=== PATIENT | female | born 1995 | race Caucasian/White ===

== ENCOUNTER 2020-07-11 16:06 | Inpatient (IN) | payer MEDICAID ==
[~2020-07-11 16:06] MED LIST: Bupivacaine 0.25% 10 ML SDV ONE
[2020-07-11] MEDS ORDERED: Ondansetron 4 MG/2 ML SDV IVPUSH PRN (16:18)
[2020-07-11] MEDS ORDERED: Nalbuphine 10 MG/1 ML Vial IVPUSH PRN (16:18)
[2020-07-11] MEDS ORDERED: Sodium Chloride 0.9% 10 ML Syringe FLUSH PRN (16:18)
[2020-07-11] MEDS ORDERED: Lidocaine 1% 50 ML MDV INJECT ONE (16:18)
[2020-07-11] MEDS ORDERED: Oxytocin/Lactated Ringers 10 UNIT/1,000 ML BAG IV SCH ×2 (16:30)
[2020-07-11] MEDS: Lactated Ringers 1,000 ML IV SCH ×3 (18:34→21:40)
[2020-07-11] MEDS ORDERED: fentaNYL 100 MCG/2 ML SDV EPIDUR PRN (20:24)
[2020-07-11] MEDS ORDERED: Bupivacaine/fentaNYL/NS 100 ML Bag EPIDUR PRN (20:24)
[2020-07-11] MEDS ORDERED: diphenhydrAMINE 50 MG/ML SDV IVPUSH PRN (20:24)
[2020-07-11] MEDS ORDERED: ePHEDrine 50 MG/ML SDV IVPUSH PRN (20:24)
--- NOTE | 2020-07-11 20:26 | PCM.PREANE ---
Preanesthetic Assessment - Procedure Proposed Procedure: epidural - Anesthesia/Transfusion/Family Hx Anesthesia History: Prior Anesthesia Without Reaction Family History of Anesthesia Reaction: No Transfusion History: No Prior Transfusion(s) - Review of Systems General: Fatigue Pulmonary: No Symptoms Cardiovascular: No Symptoms Gastrointestinal: Abdominal Pain (labor) Neurological: No Symptoms Other: Reports: None - Physical Assessment Vital Signs: Last Vital Signs Temp 36.8 C 07/11/20 16:18 Pulse 120 H 07/11/20 16:18 Resp 15 07/11/20 16:18 BP 133/83 07/11/20 16:18 Pulse Ox Height: 1.65 m Weight: 99.79 kg ASA Class: 5E Emergency Airway Class: Mallampati = 1 Dentition: Reports: Normal Dentition Thyro-Mental Finger Breadths: 3 Mouth Opening Finger Breadths: 3 ROM/Head Extension: Full Lungs: Clear to Auscultation, Normal Respiratory Effort Cardiovascular: Regular Rate, Regular Rhythm - Lab Values: Laboratory Last Values WBC 10.07 K/mm3 (3.98-10.04) H 07/11/20 16:35 RBC 4.15 M/mm3 (3.98-5.22) 07/11/20 16:35 Hgb 12.1 gm/dl (11.2-15.7) 07/11/20 16:35 Hct 37.4 % (34.1-44.9) 07/11/20 16:35 MCV 90.1 fl (79.4-94.8) 07/11/20 16:35 MCH 29.2 pg (25.6-32.2) 07/11/20 16:35 MCHC 32.4 g/dl (32.2-35.5) 07/11/20 16:35 RDW Std Deviation 43.3 fL (36.4-46.3) 07/11/20 16:35 Plt Count 174 K/mm3 (182-369) L 07/11/20 16:35 MPV 9.6 fl (9.4-12.3) 07/11/20 16:35 Neut % (Auto) 70.7 % (34.0-71.1) 07/11/20 16:35 Lymph % (Auto) 20.0 % (19.3-51.7) 07/11/20 16:35 [place] % (Auto) 7.7 % (4.7-12.5) 07/11/20 16:35 Eos % (Auto) 1.0 (0.7-5.8) 07/11/20 16:35 Baso % (Auto) 0.1 % (0.1-1.2) 07/11/20 16:35 Neut # (Auto) 7.12 K/mm3 (1.56-6.13) H 07/11/20 16:35 Lymph # (Auto) 2.01 K/mm3 (1.18-3.74) 07/11/20 16:35 [place] # (Auto) 0.78 K/mm3 (0.24-0.36) H 07/11/20 16:35 Eos # (Auto) 0.10 K/mm3 (0.04-0.36) 07/11/20 16:35 Baso # (Auto) 0.01 K/mm3 (0.01-0.08) 07/11/20 16:35 SARS-CoV-2 RNA (HIRO) Positive (NEGATIVE) H 07/11/20 16:30 Blood Type A POSITIVE 07/11/20 16:35 Gel Antibody Screen Negative 07/11/20 16:35 - Allergies Allergies/Adverse Reactions: Allergies Allergy/AdvReac Type Severity Reaction Status Date / Time No Known Allergies Allergy Verified 07/05/20 20:44 - Anesthesia Plan Pre-Op Medication Ordered: None - Acknowledgements Anesthesia Type Planned: Epidural Pt an Appropriate Candidate for the Planned Anesthesia: Yes Alternatives and Risks of Anesthesia Discussed w Pt/Guardian: Yes Pt/Guardian Understands and Agrees with Anesthesia Plan: Yes PreAnesthesia Questionnaire Gastrointestinal History: Reports: GERD 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: - SUBSTANCE USE Tobacco Use Status *Q: Never Tobacco User Tobacco Use Within Last Twelve Months: No Second Hand Smoke Exposure: No Recreational Drug Use History: No - HOME MEDS Home Medications: Home Meds Pnv No.95/Ferrous Fum/Folic AC [ Caplet] 1 cap .ROUTE DAILY 07/10/20 [History] - CURRENT (IN HOUSE) MEDS Current Meds: Current Medications Diphenhydramine HCl (Benadryl) 25 mg IVPUSH Q6H PRN PRN Reason: pruritis Ephedrine Sulfate (Ephedrine Sulfate) 5 mg IVPUSH ASDIRECTED PRN PRN Reason: Hypotension Fentanyl (Sublimaze) 100 mcg EPIDUR Q3H PRN PRN Reason: Pain Fentanyl/Bupivacaine HCl (Fentanyl/Bupivacaine/Ns 2 Mcg-0.125% 100 Ml) 100 ml EPIDUR ASDIRECTED PRN PRN Reason: Pain Oxytocin/Lactated Ringer's (Pitocin In Lr 10 Units/1,000 Ml) 10 unit in 1,000 mls @ 12 mls/hr IV TITRATE SUSAN; Protocol Last Titration: 07/11/20 20:00 Dose: 6 munits/min, 36 mls/hr Documented by: Oxytocin/Lactated Ringer's (Pitocin In Lr 10 Units/1,000 Ml) 10 unit in 1,000 mls @ 500 mls/hr IV .CONTINUOUS SUSAN Lactated Ringer's (Ringers, Lactated) 1,000 mls @ 100 mls/hr IV ASDIRECTED SUSAN Last Admin: 07/11/20 20:05 Dose: 999 mls/hr Documented by: Nalbuphine HCl (Nubain) 10 mg IVPUSH Q2H PRN PRN Reason: Pain Ondansetron HCl (Zofran) 4 mg IVPUSH Q4H PRN PRN Reason: Nausea/Vomiting Sodium Chloride (Saline Flush) 10 ml FLUSH ASDIRECTED PRN PRN Reason: Keep Vein Open Discontinued Medications Lidocaine HCl (Xylocaine 1%) 50 ml INJECT ONETIME ONE Stop: 07/11/20 16:19
--- NOTE | 2020-07-11 23:53 | PCM.LDHP ---
L&D History of Present Illness - General Date of Service: 07/11/20 Admit Problem/Dx: Patient Status Order with Admit Dx/Problem 07/11/20 16:18 Patient Status [ADT] Routine Admission Diagnosis/Problem Admission Diagnosis/Problem - History of Present Illness Introduction:: 25 year old at 39w1 here for elective induction of labor. PNC with myself without complications other than sparse care (4 visits) COVID positive on admission today. Endorses some sense that there house is [place] and allergy symptoms over the past week. 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: Social & Family History - Family History Family Medical History: No Pertinent Family History - Tobacco Use Tobacco Use Status *Q: Never Tobacco User Second Hand Smoke Exposure: No - Recreational Drug Use Recreational Drug Use: No H&P Review of Systems - Review of Systems: Review Of Systems: See Below General: Reports: No Symptoms HEENT: Reports: No Symptoms Pulmonary: Reports: No Symptoms Cardiovascular: Reports: No Symptoms Gastrointestinal: Reports: No Symptoms Genitourinary: Reports: No Symptoms Musculoskeletal: Reports: No Symptoms Skin: Reports: No Symptoms Psychiatric: Reports: No Symptoms Neurological: Reports: No Symptoms Hematologic/Lymphatic: Reports: No Symptoms Immunologic: Reports: No Symptoms L&D Exam - Exam Exam: See Below - Vital Signs Vital Signs: Last Vital Signs Temp 36.8 C 07/11/20 16:18 Pulse 120 H 07/11/20 16:18 Resp 15 07/11/20 16:18 BP 133/83 07/11/20 16:18 Pulse Ox Weight: 99.79 kg - OB Specific Contraction Intensity: Moderate to Strong - Damon Score Damon Score Cervix Position: Posterior Damon Score Consistency: Soft Damon Score Effacement: >80% Damon Score Dilation: 1-2 cm Damon Score 's Station: -2 Damon Score Total: 7 - Exam General: Alert, Oriented HEENT: PERRLA, Conjunctiva Clear, EACs Clear, EOMI, Hearing Intact, Mucosa Moist & [place], Nares Patent, Normal Nasal Septum, Posterior Pharynx Clear, TMs Clear Neck: Supple, Trachea Midline Lungs: Clear to Auscultation, Normal Respiratory Effort Cardiovascular: Regular Rate, Regular Rhythm GI/Abdominal Exam: Normal Bowel Sounds, Soft, Non-Tender, No Organomegaly, No Distention, No Abnormal Bruit, No Mass, Pelvis Stable Extremities: Normal Inspection, Normal Range of Motion, Non-Tender, No Pedal Edema, Normal Capillary Refill Skin: Warm, Dry, Intact Neurological: Reflexes Equal Bilateral Psychiatric: Alert, Normal Affect, Normal Mood - Patient Data Lab Results Last 24 hrs: Laboratory Results - last 24 hr 07/11/20 07/11/20 07/11/20 Range/Units 16:30 16:35 16:35 WBC 10.07 H (3.98-10.04) K/mm3 RBC 4.15 (3.98-5.22) M/mm3 Hgb 12.1 (11.2-15.7) gm/dl Hct 37.4 (34.1-44.9) % MCV 90.1 (79.4-94.8) fl MCH 29.2 (25.6-32.2) pg MCHC 32.4 (32.2-35.5) g/dl RDW Std Deviation 43.3 (36.4-46.3) fL Plt Count 174 L (182-369) K/mm3 MPV 9.6 (9.4-12.3) fl Neut % (Auto) 70.7 (34.0-71.1) % Lymph % (Auto) 20.0 (19.3-51.7) % [place] % (Auto) 7.7 (4.7-12.5) % Eos % (Auto) 1.0 (0.7-5.8) Baso % (Auto) 0.1 (0.1-1.2) % Neut # (Auto) 7.12 H (1.56-6.13) K/mm3 Lymph # (Auto) 2.01 (1.18-3.74) K/mm3 [place] # (Auto) 0.78 H (0.24-0.36) K/mm3 Eos # (Auto) 0.10 (0.04-0.36) K/mm3 Baso # (Auto) 0.01 (0.01-0.08) K/mm3 RPR Non-reactive (NONREACTIVE) SARS-CoV-2 RNA (HIRO) Positive H (NEGATIVE) Blood Type Gel Antibody Screen 07/11/20 Range/Units 16:35 WBC (3.98-10.04) K/mm3 RBC (3.98-5.22) M/mm3 Hgb (11.2-15.7) gm/dl Hct (34.1-44.9) % MCV (79.4-94.8) fl MCH (25.6-32.2) pg MCHC (32.2-35.5) g/dl RDW Std Deviation (36.4-46.3) fL Plt Count (182-369) K/mm3 MPV (9.4-12.3) fl Neut % (Auto) (34.0-71.1) % Lymph % (Auto) (19.3-51.7) % [place] % (Auto) (4.7-12.5) % Eos % (Auto) (0.7-5.8) Baso % (Auto) (0.1-1.2) % Neut # (Auto) (1.56-6.13) K/mm3 Lymph # (Auto) (1.18-3.74) K/mm3 [place] # (Auto) (0.24-0.36) K/mm3 Eos # (Auto) (0.04-0.36) K/mm3 Baso # (Auto) (0.01-0.08) K/mm3 RPR (NONREACTIVE) SARS-CoV-2 RNA (HIRO) (NEGATIVE) Blood Type A POSITIVE Gel Antibody Screen Negative Result Diagrams: 07/11/20 16:35 Problem List Initiated/Reviewed/Updated: Yes Orders Last 24hrs: Active Orders 24 hr Category Date Time Status Patient Status [ADT] Routine ADT 07/11/20 16:18 Active Activity as Tolerated [RC] PFP Care 07/11/20 16:18 Active Communication Order [RC] ASDIRECTED Care 07/11/20 16:18 Active Communication Order [RC] ASDIRECTED Care 07/11/20 20:24 Active Cooling Warming Measures [RC] ASDIRECTED Care 07/11/20 20:24 Active Heart Tones [RC] ASDIRECTED Care 07/11/20 16:19 Active Non Stress Test [RC] PER UNIT ROUTINE Care 07/11/20 16:18 Active Notify Provider [RC] ASDIRECTED Care 07/11/20 20:24 Active Notify Provider [RC] ASDIRECTED Care 07/11/20 20:24 Active Notify Provider [RC] PFP Care 07/11/20 16:18 Active Notify Provider [RC] PRN Care 07/11/20 16:18 Active Oxygen Therapy [RC] ASDIRECTED Care 07/11/20 20:24 Active Peripheral IV Care [RC] . DIRECTED Care 07/11/20 16:19 Active Pulse Oximetry [RC] ASDIRECTED Care 07/11/20 20:24 Active Pump Management, Intrathecal [RC] ASDIRECTED Care 07/11/20 16:20 Active Urinary Catheter Assessment [RC] ASDIRECTED Care 07/11/20 16:18 Active Vital Signs [RC] PER UNIT ROUTINE Care 07/11/20 16:18 Active Vital Signs [RC] Q1H Care 07/11/20 20:24 Active Regular Diet [DIET] Diet 07/11/20 Dinner Active PATIENT RETYPE [BBK] Routine Lab 07/11/20 18:24 Ordered Bupivacaine/fentaNYL/NS [fentaNYL/Bupivacaine/NS 2 MCG- Med 07/11/20 20:24 Active 0.125% 100 ML] 100 ml EPIDUR ASDIRECTED PRN Lactated Ringers [Ringers, Lactated] 1,000 ml Med 07/11/20 16:30 Active IV ASDIRECTED Nalbuphine [Nubain] Med 07/11/20 16:18 Active 10 mg IVPUSH Q2H PRN Ondansetron [Zofran] Med 07/11/20 16:18 Active 4 mg IVPUSH Q4H PRN Oxytocin/Lactated Ringers [Pitocin in LR 10 Units/1,000 Med 07/11/20 16:30 Active ML] 10 unit in 1,000 ml IV .CONTINUOUS Oxytocin/Lactated Ringers [Pitocin in LR 10 Units/1,000 Med 07/11/20 16:30 Active ML] 10 unit in 1,000 ml IV TITRATE Sodium Chloride 0.9% [Saline Flush] Med 07/11/20 16:18 Active 10 ml FLUSH ASDIRECTED PRN diphenhydrAMINE [Benadryl] Med 07/11/20 20:24 Active 25 mg IVPUSH Q6H PRN ePHEDrine [ePHEDrine sulfate] Med 07/11/20 20:24 Active 5 mg IVPUSH ASDIRECTED PRN fentaNYL [Sublimaze] Med 07/11/20 20:24 Active 100 mcg EPIDUR Q3H PRN Electronic Heart Tones Ext w TOCO [WOMSER] Oth 07/11/20 16:18 Ordered Routine Electronic Heart Tones Internal [WOMSER] Per Unit Oth 07/11/20 16:18 Ordered Routine Peripheral IV Insertion Adult [OM.PC] Routine Oth 07/11/20 16:18 Ordered Resuscitation Status Routine Resus Stat 07/11/20 16:18 Ordered Medication Orders Diphenhydramine HCl (Benadryl) 25 mg IVPUSH Q6H PRN PRN Reason: pruritis Ephedrine Sulfate (Ephedrine Sulfate) 5 mg IVPUSH ASDIRECTED PRN PRN Reason: Hypotension Fentanyl (Sublimaze) 100 mcg EPIDUR Q3H PRN PRN Reason: Pain Last Admin: 07/11/20 20:31 Dose: 100 mcg Documented by: GILMAR Fentanyl/Bupivacaine HCl (Fentanyl/Bupivacaine/Ns 2 Mcg-0.125% 100 Ml) 100 ml EPIDUR ASDIRECTED PRN PRN Reason: Pain Last Admin: 07/11/20 20:32 Dose: 100 ml Documented by: GILMAR Oxytocin/Lactated Ringer's (Pitocin In Lr 10 Units/1,000 Ml) 10 unit in 1,000 mls @ 12 mls/hr IV TITRATE SUSAN; Protocol Last Titration: 07/11/20 21:40 Dose: 10 munits/min, 60 mls/hr Documented by: Titration: 07/11/20 20:30 Dose: 8 munits/min, 48 mls/hr Documented by: Titration: 07/11/20 20:00 Dose: 6 munits/min, 36 mls/hr Documented by: Titration: 07/11/20 19:30 Dose: 4 munits/min, 24 mls/hr Documented by: Admin: 07/11/20 18:35 Dose: 2 munits/min, 12 mls/hr Documented by: HAL Oxytocin/Lactated Ringer's (Pitocin In Lr 10 Units/1,000 Ml) 10 unit in 1,000 mls @ 500 mls/hr IV .CONTINUOUS SUSAN Lactated Ringer's (Ringers, Lactated) 1,000 mls @ 100 mls/hr IV ASDIRECTED [facility] Last Admin: 07/11/20 21:40 Dose: 100 mls/hr Documented by: Infusion: 07/11/20 21:06 Dose: 999 mls/hr Documented by: Admin: 07/11/20 20:05 Dose: 999 mls/hr Documented by: Infusion: 07/11/20 20:05 Dose: 100 mls/hr Documented by: Admin: 07/11/20 18:34 Dose: 100 mls/hr Documented by: HAL Nalbuphine HCl (Nubain) 10 mg IVPUSH Q2H PRN PRN Reason: Pain Ondansetron HCl (Zofran) 4 mg IVPUSH Q4H PRN PRN Reason: Nausea/Vomiting Sodium Chloride (Saline Flush) 10 ml FLUSH ASDIRECTED PRN PRN Reason: Keep Vein Open Assessment/Plan Comment:: Term induction. AROM clear fluid. Pitocin. Anticipate Covid precautions. Monitor for symptoms
--- NOTE | 2020-07-11 23:57 | PCM.SN.2 ---
- Free Text/Narrative Note: Stage I - Patient presented for induction of labor. AROM clear fluid. COVID positive. Pitocin initiated. Epidural. Stage II - of viable male. Weight 3790g.8/9 APGARS at 2339. Head delivered in controlled manner over intact perineum. Body and shoulders atraumatically. To maternal abdomen. Positive cry. Cord clamped and cut. Cord blood collected. Stage III - of intact placenta. 3vc. No laceration. EBL 400
[2020-07-12] MEDS ORDERED: Ibuprofen 600 MG Tab PO PRN (04:50)
[2020-07-12] MEDS ORDERED: Acetaminophen 325 MG Tab PO PRN (06:07)
[2020-07-12] MEDS ORDERED: Benzocaine/Menthol 20%-0.5% Spray 56 GM Canister TOP PRN (06:34)
--- NOTE | 2020-07-12 07:59 | PCM48HPAN ---
Post Anesthesia Note - EVALUATION WITHIN 48HRS OF ANESTHETIC Vital Signs in Normal Range: Yes Patient Participated in Evaluation: Yes Respiratory Function Stable: Yes Airway Patent: Yes Cardiovascular Function Stable: Yes Hydration Status Stable: Yes Pain Control Satisfactory: Yes Nausea and Vomiting Control Satisfactory: Yes Mental Status Recovered: Yes Vital Signs: Last Vital Signs Temp 36.3 C 07/12/20 04:39 Pulse 79 07/12/20 04:39 Resp 16 07/12/20 04:39 BP 119/77 07/12/20 04:39 Pulse Ox 97 07/12/20 04:39
[2020-07-12] MEDS ORDERED: Prenatal Multivitamin with Calcium/Folic Acid/Iron Tab PO SCH (09:00)
[2020-07-12] MEDS: Ibuprofen 600 MG Tab PO PRN ×2 (11:09→19:38)
[2020-07-12] MEDS: Acetaminophen 325 MG Tab PO PRN (15:59)
[2020-07-13] MEDS: Acetaminophen 325 MG Tab PO PRN (00:21)
[2020-07-13] MEDS: Ibuprofen 600 MG Tab PO PRN (03:37)
--- NOTE | 2020-07-13 11:23 | PCM.DCSUM1 ---
Discharge Summary - Hospital Course Diagnosis: Stroke: No - Discharge Data Discharge Date: 07/13/20 Discharge Disposition: Home, Self-Care 01 Condition: Good - Referral to Home Health Primary Care Physician: Ruth Brown MD - Patient Summary/Data Hospital Course: Routine care. COVID positive - Patient Instructions Diet: Usual Diet as Tolerated Activity: No Strenuous Activities Activity, Other: quarantine recommendations Driving: May Drive Today Showering/Bathing: May Shower Notify Provider of: Fever, Increased Pain, Swelling and Redness, Drainage, Nausea and/or Vomiting - Discharge Plan *PRESCRIPTION DRUG MONITORING PROGRAM REVIEWED*: No *COPY OF PRESCRIPTION DRUG MONITORING REPORT IN PATIENT SHERRY: No Home Medications: Home Meds Pnv No.95/Ferrous Fum/Folic AC [ Caplet] 1 cap .ROUTE DAILY 07/10/20 [History] Referrals: Lolita Stein MD [Physician] - (6 weeks) - Discharge Summary/Plan Comment DC Time >30 min.: No - General Info Date of Service: 07/13/20 Functional Status: Reports: Pain Controlled - Review of Systems General: Reports: No Symptoms HEENT: Reports: No Symptoms Pulmonary: Reports: No Symptoms Cardiovascular: Reports: No Symptoms Gastrointestinal: Reports: No Symptoms Genitourinary: Reports: No Symptoms Musculoskeletal: Reports: No Symptoms Skin: Reports: No Symptoms Neurological: Reports: No Symptoms Psychiatric: Reports: No Symptoms - Patient Data Vitals - Most Recent: Last Vital Signs Temp 37.0 C 07/13/20 04:29 Pulse 75 07/13/20 04:29 Resp 16 07/13/20 04:29 BP 123/74 07/13/20 04:29 Pulse Ox 98 07/13/20 04:29 Weight - Most Recent: 99.79 kg I&O - Last 24 hours: Intake & Output 07/12/20 07/13/20 07/13/20 22:59 06:59 14:59 Intake Total 640 Balance 640 Med Orders - Current: Current Medications Acetaminophen (Tylenol) 650 mg PO Q6H PRN PRN Reason: Pain Last Admin: 07/13/20 00:21 Dose: 650 mg Documented by: Benzocaine/Menthol (Dermoplast Pain Relief [place]) 0 gm TOP ASDIRECTED PRN PRN Reason: Perineal Comfort Measure Ibuprofen (Motrin) 600 mg PO Q6H PRN PRN Reason: Mild pain or fever Last Admin: 07/13/20 03:37 Dose: 600 mg Documented by: Discontinued Medications Acetaminophen (Tylenol) 650 mg PO Q6H PRN PRN Reason: Cramping Last Admin: 07/12/20 06:19 Dose: 650 mg Documented by: Bupivacaine HCl (Sensorcaine-Mpf 0.25%) 10 ml .ROUTE .STK-MED ONE Stop: 07/11/20 00:01 Diphenhydramine HCl (Benadryl) 25 mg IVPUSH Q6H PRN PRN Reason: pruritis Ephedrine Sulfate (Ephedrine Sulfate) 5 mg IVPUSH ASDIRECTED PRN PRN Reason: Hypotension Fentanyl (Sublimaze) 100 mcg EPIDUR Q3H PRN PRN Reason: Pain Last Admin: 07/11/20 20:31 Dose: 100 mcg Documented by: Fentanyl/Bupivacaine HCl (Fentanyl/Bupivacaine/Ns 2 Mcg-0.125% 100 Ml) 100 ml EPIDUR ASDIRECTED PRN PRN Reason: Pain Last Admin: 07/11/20 20:32 Dose: 100 ml Documented by: Oxytocin/Lactated Ringer's (Pitocin In Lr 10 Units/1,000 Ml) 10 unit in 1,000 mls @ 12 mls/hr IV TITRATE SUSAN; Protocol Last Titration: 07/11/20 21:40 Dose: 10 munits/min, 60 mls/hr Documented by: Oxytocin/Lactated Ringer's (Pitocin In Lr 10 Units/1,000 Ml) 10 unit in 1,000 mls @ 500 mls/hr IV .CONTINUOUS SUSAN Lactated Ringer's (Ringers, Lactated) 1,000 mls @ 100 mls/hr IV ASDIRECTED SUSAN Last Admin: 07/11/20 21:40 Dose: 100 mls/hr Documented by: Ibuprofen (Motrin) 600 mg PO Q6H PRN PRN Reason: Cramping Last Admin: 07/12/20 05:04 Dose: 600 mg Documented by: Lidocaine HCl (Xylocaine 1%) 50 ml INJECT ONETIME ONE Stop: 07/11/20 16:19 Last Admin: 07/12/20 22:19 Dose: Not Given Documented by: Nalbuphine HCl (Nubain) 10 mg IVPUSH Q2H PRN PRN Reason: Pain Ondansetron HCl (Zofran) 4 mg IVPUSH Q4H PRN PRN Reason: Nausea/Vomiting Prenat Multivit/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 Moist/[place] Neck: Reports: Supple Lungs: Reports: Clear to Auscultation, Normal Respiratory Effort Cardiovascular: Reports: Regular Rate, Regular Rhythm GI/Abdominal Exam: Normal Bowel Sounds, Soft, Non-Tender, No Organomegaly, No Distention, No Abnormal Bruit, No Mass, Pelvis Stable (Female) Exam: Normal External Exam Rectal (Female) Exam: Normal Exam, Normal Rectal Tone Back Exam: Reports: Normal Inspection, Full Range of Motion Extremities: Normal Inspection, Normal Range of Motion, Non-Tender, No Pedal Edema, Normal Capillary Refill Skin: Reports: Warm, Dry, Intact Wound/Incisions: Reports: Healing Well Neurological: Reports: No New Focal Deficit Psy/Mental Status: Reports: Alert, Normal Affect, Normal Mood
== END 2020-07-13 19:09 | disposition home or self-care (01) | DRG 805 ==
LOC: JD.OB 16:06 → OBSVTOIN 23:39 → JD.OB 23:39
PROVIDERS: ADMIT Obstetrics & Gynecology; ATTEND Obstetrics & Gynecology
PROC: 10E0XZZ Delivery of Products of Conception, External Approach (ICD-10-PCS; principal; 2020-07-11)
PROC: 3E0P7VZ Introduction of Hormone into Female Reproductive, Via Natural or Artificial Opening (ICD-10-PCS; 2020-07-11)
PROC: 10907ZC Drainage of Amniotic Fluid, Therapeutic from Products of Conception, Via Natural or Artificial Opening (ICD-10-PCS; 2020-07-11)
PROC: 3E0R3BZ Introduction of Anesthetic Agent into Spinal Canal, Percutaneous Approach (ICD-10-PCS; 2020-07-11)
DX: O98.52 Other viral diseases complicating childbirth (principal); U07.1 COVID-19; Z37.0 Single live birth; O99.52 Diseases of the respiratory system complicating childbirth; J98.8 Other specified respiratory disorders; Z3A.39 39 weeks gestation of pregnancy
CPT/HCPCS: 01967; 36415; 51702; 59025; 59409; 85025; 86592; 86850; 86900; 86901; A9270-GY; J2590; J3010; J3490; J7120; U0002

== ENCOUNTER 2021-03-21 18:51 | Emergency (ER) | payer MEDICAID ==
--- NOTE | 2021-03-21 20:17 | EDM.PDOCBH ---
ED HPI GENERAL MEDICAL PROBLEM - General Chief Complaint: Behavioral/Psych Stated Complaint: BROUGHT IN BY OFFICER/SUICIDAL Time Seen by Provider: 03/21/21 20:09 Source of Information: Reports: Patient History Limitations: Reports: No Limitations - History of Present Illness INITIAL COMMENTS - FREE TEXT/NARRATIVE: Patient is a 26-year-old female who presents to the emergency department brought in by Police Department for being inebriated. 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 She states she is under more stress because they are buying a new home. Patient has 5 children under 7 years of age. When asked by someone earlier whether she is depressed she stated yes but in the department here she is happy laughing smiling and very interactive. She occasionally smokes marijuana but did not do so today and is not using any other drugs. Patient denies any suicidal ideation . She states when she was 15 years old she did try to kill herself by taking an aloe vera plant and scraping it on her forearms. Patient is also having some marital difficulty and acknowledges having an affair "sneaky link". She denies being suicidal and states she does not have any plan. She states her children are being watched by her sisters and by her andreina. 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 Psychiatric: Reports: No Symptoms. Denies: Anxiety, Depression, Hallucinations, Mood Lability, Suicidal Ideation ED EXAM, BEHAVIORAL HEALTH - Physical Exam Exam: See Below Exam Limited By: No Limitations General Appearance: Alert, No Apparent Distress Throat/Mouth: Normal Inspection Head: Atraumatic Neck: Normal Inspection Respiratory/Chest: No Respiratory Distress, Lungs Clear, Normal Breath Sounds Cardiovascular: Regular Rate, Rhythm, No Murmur GI/Abdominal: Normal Bowel Sounds, Soft, Non-Tender Back Exam: Normal Inspection Extremities: Normal Inspection Neurological: Alert Psychiatric: Alert, Normal Cognition. No: Flat Affect, Disoriented, Poor Eye Contact, Uncooperative, Suicidal Plan, Suicidal Thoughts Skin Exam: Warm, Dry COURSE, BEHAVIORAL HEALTH COMP - Course Vital Signs: Last Vital Signs Temp 98.9 F 03/21/21 19:30 Pulse 100 03/21/21 19:30 Resp 20 03/21/21 19:30 BP 151/107 H 03/21/21 19:30 Pulse Ox 97 03/21/21 19:30 Re-Assessment/Re-Exam: Patient is happy and clearly not depressed currently. I can smell alcohol on her breath but again since she is not suicidal and is not depressed anxiety affiliated with local psychiatric outpatient provider I am comfortable discharging her home at this time. Police have offered to take her home. Departure - Departure Time of Disposition: 20:43 Disposition: Home, Self-Care 01 Condition: Good Clinical Impression: Alcohol intoxication - Discharge Information Instructions: Alcohol Intoxication, [id number] Referrals: PCP,None [Primary Care Provider] - Forms: ED Department Discharge Additional Instructions: Return to ER if suicidal or symptoms worse. Follow-up with outpatient psychiatric services as you are currently doing. Drink only in moderation. Sepsis Event Note (ED) - Focused Exam Vital Signs: Vital Signs Temp Pulse Resp BP Pulse Ox 03/21/21 19:30 98.9 F 100 20 151/107 H 97
== END 2021-03-21 21:10 | disposition home or self-care (01) ==
LOC: JD.ED 18:51
DX: F10.129 Alcohol abuse with intoxication, unspecified (principal)
CPT/HCPCS: 99283; 99284

== ENCOUNTER 2024-07-04 09:18 | Emergency (ER) | payer BC, OTHER ==
[2024-07-04 10:27] LABS: BASOPHILS PERCENT AUTO 0.5 % (0.0-1.0); EOSINOPHILS ABSOLUTE AUTO 0.1 K/mm3 (0.0-0.4); EOSINOPHILS PERCENT AUTO 1.2 % (0.0-6.0); HEMATOCRIT 39.6 % (37.0-47.0); HEMOGLOBIN 12.8 gm/dl (12.0-16.0); IMMATURE GRAN ABSOLUTE AUTO 0.01 K/mm3 (0.00-0.05); IMMATURE GRAN PERCENT AUTO 0.2 % (0.0-0.4); LYMPHOCYTES ABSOLUTE AUTO 1.7 K/mm3 (1.0-4.8); MEAN CORPUSCULAR HEMOGLOBIN 30.3 pg (28.0-32.0); MEAN CORPUSCULAR HGB CONC 32.3 g/dl (32.0-36.0); MEAN CORPUSCULAR VOLUME 93.8 fl (83.0-99.0); MEAN PLATELET VOLUME 8.6 fl (9.4-12.3); MONOCYTES ABSOLUTE AUTO 0.5 K/mm3 (0.0-0.8); MONOCYTES PERCENT AUTO 6.9 % (0.0-8.0); NEUTROPHILS ABSOLUTE AUTO 4.4 K/mm3 (1.8-7.7); NEUTROPHILS PERCENT AUTO 66.2 % (41.0-71.0); PLATELET COUNT,PLT 218 K/mm3 (150-400); RED BLOOD CELL COUNT 4.22 M/mm3 (4.10-5.30); WHITE BLOOD CELL COUNT,WBC 6.65 K/mm3 (3.9-11.3)
[2024-07-04 10:59] LABS: A/G RATIO 1.1 (1-2); ALBUMIN 3.9 g/dl (3.4-5.0); BILIRUBIN TOTAL 0.9 mg/dL (0.2-1.0); BUN/CREATININE RATIO 11.7 (14-18); C-REACTIVE PROTEIN 0.34 mg/dL (<0.30); CALCIUM 8.8 mg/dL (8.5-10.1); CREATININE 0.6 mg/dL (0.55-1.02); EST CRCL DRUG DOSING (CG) 119.47 mL/min; PROTEIN TOTAL,TP 7.5 g/dl (6.4-8.2)
[2024-07-04] MEDS: cefTRIAXone 1 GM, Lidocaine 1% 2.1 ML IM SCH (12:38)
== END 2024-07-04 12:45 | disposition home or self-care (01) ==
LOC: JD.ED 09:18
DX: N72 Inflammatory disease of cervix uteri (principal); Z87.891 Personal history of nicotine dependence; Z79.899 Other long term (current) drug therapy
CPT/HCPCS: 36415; 80053; 85025; 86140; 87070; 87075; 87205; 96372; 99283; J0696; J3490

== ENCOUNTER 2024-08-06 08:55 | Day surgery (SDC) | payer OTHER ==
[~2024-08-06 08:55] MED LIST changes: -Bupivacaine 0.25% 10 ML SDV ONE; +HYDROmorphone 0.5 MG/0.5 ML Syringe IVPUSH PRN; +Ondansetron 4 MG/2 ML SDV IVPUSH PRN; +Sodium Chloride 0.9% 10 ML Syringe FLUSH PRN; +Sodium Chloride 0.9% 10 ML Syringe FLUSH SCH; +fentaNYL 100 MCG/2 ML SDV IVPUSH PRN
[2024-08-06] MEDS: Lactated Ringers 1,000 ML IV SCH (09:15)
[2024-08-06] MEDS ORDERED: Propofol 200 MG/20 ML SDV ONE ×3 (10:20→10:43)
[2024-08-06] MEDS ORDERED: Lidocaine 2% 5 ML SDV ONE (10:21)
== END 2024-08-06 12:04 | disposition home or self-care (01) ==
LOC: JD.SDS 08:55
PROVIDERS: ATTEND Surgery
DX: K64.8 Other hemorrhoids (principal); K21.9 Gastro-esophageal reflux disease without esophagitis; E11.9 Type 2 diabetes mellitus without complications
CPT/HCPCS: 00811; J2704; J3490; J7120

== ENCOUNTER 2024-11-04 18:22 | Emergency (ER) | payer OTHER ==
[2024-11-04 19:17] LABS: APPEARANCE,URINE CLEAR (Clear); BILIRUBIN,URINE NEGATIVE (Negative); COLOR,URINE YELLOW (Yellow); GLUCOSE,URINE NEGATIVE (Negative); KETONES,URINE NEGATIVE (Negative); LEUKOCYTE ESTERASE,URINE NEGATIVE (Negative); NITRITE,URINE NEGATIVE (Negative); OCCULT BLOOD,URINE NEGATIVE (Negative); PH,URINE 6.5 (5.0-8.0); PROTEIN,URINE NEGATIVE (Negative); UROBILINOGEN,URINE 0.2 (0.2-1.0)
[2024-11-04] MEDS: Acetaminophen 325 MG Tab PO ONE (19:57)
[2024-11-04 22:30] LABS: C. TRACHOMATIS BY PCR NOT DETECTED; N. GONORRHOEAE BY PCR NOT DETECTED
== END 2024-11-04 23:15 | disposition home or self-care (01) ==
LOC: JD.ED 18:22
DX: N89.8 Other specified noninflammatory disorders of vagina (principal); Z79.899 Other long term (current) drug therapy
CPT/HCPCS: 81003; 81515; 87070; 87205; 87491; 87591; 99284; A9270; 99282